=== PATIENT | male | born 1995 | race African-American/Black ===

== ENCOUNTER 2020-11-20 17:04 | Emergency (ER) | payer SELFPAY ==
--- NOTE | 2020-11-20 18:12 | ER ---
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 Coronavirus screen: Client denies travel out of the [place] in the last 14 days. Ebola Screen: Patient negative for fever greater than or equal to 101.5 degrees Fahrenheit, and additional compatible Ebola Virus Disease symptoms Patient denies exposure to infectious person. Patient denies travel to an Ebola-affected area in the 21 days before illness onset. No symptoms or risks identified at this time. Initial Sepsis Screen: Does the patient meet any 2 criteria? No. Patient's initial sepsis screen is negative. Does the patient have a suspected source of infection? Yes: Skin breakdown/wound. Risk Assessment: Do you want to hurt yourself or someone else? Patient reports no desire to harm self or others. Onset of symptoms was November 20, 2020. 17:29 Method Of Arrival: Ambulatory em 17:29 Acuity: JORGE 4 em Historical: - Allergies: 17:32 No Known Allergies; em - PMHx: 17:32 None; em - PSHx: 17:32 None; em - Immunization history:: Last tetanus immunization: unknown. - Social history:: Smoking status: Patient denies any tobacco usage or history of. Screenin:29 Abuse screen: Denies threats or abuse. Nutritional screening: No deficits noted. em Tuberculosis screening: No symptoms or risk factors identified. Fall Risk None identified. Assessment: 17:35 General: Appears in no apparent distress. comfortable, Behavior is calm, cooperative, em appropriate for age, Denies fever. Pain: Denies pain. Neuro: Level of Consciousness is awake, alert, obeys commands, Oriented to person, place, time, situation. Cardiovascular: Capillary refill < 3 seconds Patient's skin is warm and dry. Respiratory: Airway is patent Respiratory effort is even, unlabored, Respiratory pattern is regular, symmetrical. Derm: Skin is pink, warm \T\ dry. Musculoskeletal: Capillary refill < 3 seconds, Range of motion: intact in all extremities. Injury Description: Burn was sustained 2 days ago. Patient sustained second-degree burn(s) to anterior aspect of right shoulder, right bicep and right wrist. Vital Signs: 17:29 BP 144 / 92; Pulse 89; Resp 18; Temp 98.8(O); Pulse Ox 99% on R/A; Weight 72.57 kg (R); em Height 5 ft. 8 in. (172.72 cm); Pain 0/10; 17:29 Body Mass Index 24.33 (72.57 kg, 172.72 cm) em ED Course: 17:09 Patient arrived in ED. ds1 17:29 Patient has correct armband on for positive identification. em 17:32 Triage completed. em 17:32 Arm band placed on. em 18:09 Javier Alegre PA is PHCP. jr8 18:09 Martin Lombardi MD is Attending Physician. jr8 18:20 No provider procedures requiring assistance completed. Patient did not have IV access em during this emergency room visit. 18:22 Hernan Champagne, MARTINEZ is Primary Nurse. 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 Exp: aa5 11/10/2021. Lot #: [id number]. } Route: IM; Site: left deltoid; Outcome: 18:11 Discharge ordered by . jr8 18:29 Discharged to home ambulatory. em 18:29 Condition: stable 18:29 Discharge instructions given to patient, Instructed on discharge instructions, follow up and referral plans. medication usage, Demonstrated understanding of instructions, follow-up care, medications, Prescriptions given X 1. 18:30 Patient left the ED. aa5 Signatures: Herann Champagne RN RN Huong Bautista ds1 Amanda Corea RN RN aa5 Javier Alegre PA PA jr8
--- NOTE | 2020-11-20 18:12 | EDPHYS ---
Physician Documentation [facility] Name: Kraig Evans Age: 25 yrs Sex: Male : 1995 Arrival Date: 11/20/2020 Time: 17:09 Bed 12 Private MD: ED Physician Martin Lombardi HPI: 11/21 01:12 This 25 yrs old Black Male presents to ER via Ambulatory with complaints of Arm Burn. jr8 01:12 The patient presents with a burn as a result of hot water, at work, is located on the jr8 right arm. Onset: The symptoms/episode began/occurred acutely, 2 day(s) ago. Burn type and severity: 2nd degree: approximately 4% total body surface area of second degree injury. Associated signs and symptoms: none. The patient has not experienced similar symptoms in the past. The patient has not recently seen a physician. Stated that the hot water dish station was not fully turned off at work and sprayed his arm . Historical: - Allergies: 11/20 17:32 No Known Allergies; em - PMHx: 17:32 None; em - PSHx: 17:32 None; em - Immunization history:: Last tetanus immunization: unknown. - Social history:: Smoking status: Patient denies any tobacco usage or history of. ROS: 11/21 01:12 Eyes: Negative for injury, pain, redness, and discharge, ENT: Negative for injury, jr8 pain, and discharge, Neck: Negative for injury, pain, and swelling, Cardiovascular: Negative for chest pain, palpitations, and edema, Respiratory: Negative for shortness of breath, cough, wheezing, and pleuritic chest pain, Abdomen/GI: Negative for abdominal pain, nausea, vomiting, diarrhea, and constipation, Back: Negative for injury and pain, MS/Extremity: Negative for injury and deformity, Neuro: Negative for headache, weakness, numbness, tingling, and seizure. Skin: Positive for burn, of the right arm. Exam: 01:12 Head/Face: Normocephalic, atraumatic. Eyes: Pupils equal round and reactive to light, jr8 extra-ocular motions intact. Lids and lashes normal. Conjunctiva and sclera are non-icteric and not injected. Cornea within normal limits. Periorbital areas with no swelling, redness, or edema. ENT: Nares patent. No nasal discharge, no septal abnormalities noted. Tympanic membranes are normal and external auditory canals are clear. Oropharynx with no redness, swelling, or masses, exudates, or evidence of obstruction, uvula midline. Mucous membranes moist. Neck: Trachea midline, no thyromegaly or masses palpated, and no cervical lymphadenopathy. Supple, full range of motion without nuchal rigidity, or vertebral point tenderness. No Meningismus. Cardiovascular: Regular rate and rhythm with a normal S1 and S2. No gallops, murmurs, or rubs. Normal PMI, no JVD. No pulse deficits. Respiratory: Lungs have equal breath sounds bilaterally, clear to auscultation and percussion. No rales, rhonchi or wheezes noted. No increased work of breathing, no retractions or nasal flaring. Abdomen/GI: Soft, non-tender, with normal bowel sounds. No distension or tympany. No guarding or rebound. No evidence of tenderness throughout. Back: No spinal tenderness. No costovertebral tenderness. Full range of motion. MS/ Extremity: Pulses equal, no cyanosis. Neurovascular intact. Full, normal range of motion. Neuro: Awake and alert, GCS 15, oriented to person, place, time, and situation. Cranial nerves II-XII grossly intact. Motor strength 5/5 in all extremities. Sensory grossly intact. Cerebellar exam normal. Normal gait. 01:12 Skin: injury, burn(s), 2nd degree burn injury covers approximately 4% of the total body surface area, and is located on the right arm and right bicep and anterior aspect of right shoulder. Vital Signs: 11/20 17:29 BP 144 / 92; Pulse 89; Resp 18; Temp 98.8(O); Pulse Ox 99% on R/A; Weight 72.57 kg (R); em Height 5 ft. 8 in. (172.72 cm); Pain 0/10; 17:29 Body Mass Index 24.33 (72.57 kg, 172.72 cm) em MDM: 18:09 Patient medically screened. jr8 18:10 Data reviewed: vital signs, nurses notes, and as a result, I will discharge patient. jr8 Data interpreted: Pulse oximetry: on room air is 99 %. Interpretation: normal. Counseling: I had a detailed discussion with the patient and/or guardian regarding: the historical points, exam findings, and any diagnostic results supporting the discharge/admit diagnosis, the need for outpatient follow up, a family practitioner, to return to the emergency department if symptoms worsen or persist or if there are any questions or concerns that arise at home. ED course: Discussed burn care and s/s to watch for that would indicate infection. Patient good with this and will f/u otherwise. 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 Exp: aa5 11/10/2021. Lot #: [id number]. } Route: IM; Site: left deltoid; Disposition: 11/20/20 18:11 Discharged to Home. Impression: Burn of second degree of forearm, Burn of second degree of right upper arm. - Condition is Stable. - Discharge Instructions: Burn Care, Adult, Second-Degree Burn. - Prescriptions for Silvadene 1 % Topical Cream - Apply to affected area 1 application by TOPICAL route every 12 hours; 50 gram. - Medication Reconciliation Form, Thank You Letter, Antibiotic Education, Prescription Opioid Use form. - Follow up: Private Physician; When: 5 - 6 days; Reason: Wound Recheck, Recheck today's complaints, Continuance of care, Re-evaluation by your physician. - Problem is new. - Symptoms have improved. Addendum: 11/22/2020 06:38 Co-signature as Attending Physician, Martin Lombardi MD I agree with the assessment and t w4 plan of care. Signatures: Hernan Champagne RN RN em Calderon, Audri, RN RN aa5 Javier Alegre PA PA jr8 Martin Lombardi MD MD tw4 Corrections: (The following items were deleted from the chart) 11/20 18:30 18:11 11/20/2020 18:11 Discharged to Home. Impression: Burn of second degree of aa5 forearm; Burn of second degree of right upper arm. Condition is Stable. Forms are Medication Reconciliation Form, Thank You Letter, Antibiotic Education, Prescription Opioid Use. Follow up: Private Physician; When: 5 - 6 days; Reason: Wound Recheck, Recheck today's complaints, Continuance of care, Re-evaluation by your physician. Problem is new. Symptoms have improved. jr8
[2020-11-20] MEDS ORDERED: TETANUS & DIPHTHERIA TOX,ADULT 0.5 ML VIAL ONE ×2 (18:32→18:44)
[2020-11-20 18:52] VITALS: BP 144/92; TEMP 98.8; O2SAT 99
== END 2020-11-20 18:30 | disposition home or self-care (01) ==
LOC: ER 17:04
DX: T22.211A Burn of second degree of right forearm, initial encounter (principal); T22.231A Burn of second degree of right upper arm, initial encounter; Z23 Encounter for immunization; X11.1XXA Contact with running hot water, initial encounter; Y99.0 Civilian activity done for income or pay
CPT/HCPCS: 90471; 90714; 99283